=== PATIENT | female | born 1995 | race Caucasian/White ===

== ENCOUNTER 2023-09-09 06:10 | Observation (INO) | payer BC ==
[~2023-09-09] VITALS: Ht 165.1 cm; Wt 70.3 kg
[2023-09-09 06:29] VITALS: BP 119/67; PULSE 77; RESP 18; TEMP 97.6
[2023-09-09] MEDS ORDERED: OSC500 PO (07:21)
[2023-09-09] MEDS ORDERED: FERR325E14 PO (07:21)
[2023-09-09] MEDS ORDERED: PREN-543 PO (07:21)
== END 2023-09-09 07:25 | disposition left against medical advice (07) ==
LOC: MLD 06:10 → UNDOADMOB 07:05
PROVIDERS: ADMIT Obstetrics & Gynecology; ATTEND Obstetrics & Gynecology
DX: O62.9 Abnormality of forces of labor, unspecified (principal); Z3A.39 39 weeks gestation of pregnancy; Z88.0 Allergy status to penicillin
CPT/HCPCS: 81000; G0378